=== PATIENT | male | born 1965 | race African-American/Black ===

== ENCOUNTER → 2020-08-08 | Outpatient (CLI) | payer OTHER, SELFPAY ==
--- NOTE | 2020-08-08 | IMM_PTH ---
PATIENT: NADER THAPA LOC: [facility] U#:[id number] AGE/SX: 54/M ROOM: RE08/08/[address]: Dr. Michael Dillard MD : 1965 BED: DIS: 08/08/2020 SPEC #: [id number] RECD: 01/31/21 12:38 STATUS: HIEN REQ #: [id number] JOCELYN: 08/08/20 00:[address]: Michael Dillard DEPT: IMMUNOHISTOCHEMISTRY RECD BY: Sadaf Patel Tissues: C - PROSTATE RIGHT Procedures: MSH2 (add) MLH-1 (add) MSH6 (add) Anti-PMS2 (add) P53 (add) KI-67 (initial) PHYSICIAN & INSTITUTION [place] [address] SPECIMEN INFORMATION: Tissue Source: C - Right prostate, base, core biopsy Clinical Info: R97.20 Specimen Number: [id number] CPT code: 11631, 36879 x5 METHODOLOGY: Deparaffinized sections of prefer/formalin-fixed tissue or PAP/DQ stained slides are incubated with monoclonal/polyclonal antibodies/oligonucleotide probes. Localization is made via biotin free immunoperoxidase method. Appropriate controls are performed and reacted as expected. Results on target cell population are indicated in the following table: RESULTS: ANTIBODY / CLONE RESULT Block C Ki-67 (30-9) positive, low P53 (DO-7) negative MLH-1 (M1) positive MSH2 (25D12) negative MSH6 (44) positive PMS2 (EEH7823) positive These tests were developed and their performance characteristics determined by [facility]. They may not have been cleared or approved by the U.S. Food and Drug Administration. The FDA has determined that such clearance or approval is not necessary. The above immunohistochemical/dualISH markers are ordered and reviewed by the Pathologist. INTERPRETATION: C. Right prostate, base, core biopsy: Adenocarcinoma. Result of Microsatellite Instability Study: Positive (loss of mismatch protein; microsatellite instability detected). Complete loss of MSH2. SJ:juan 02/02/2021
--- NOTE | 2020-08-08 | PROSBIL_PTH ---
PATIENT: NADER THAPA [facility][id number] AGE/SX: 54/M ROOM: RE08/08/[address]: Dr. Michael Dillard MD : 1965 BED: DIS: 08/08/2020 SPEC #: [id number] RECD: 08/08/20 16:55 STATUS: HIEN REChoco #: [id number] JOCELYN: 08/08/20 00:[address]: Michael Dillard DEPT: SURGICAL PATHOLOGY RECD BY: Edgar Isaac Tissues: A - PROSTATE RIGHT B - PROSTATE RIGHT C - PROSTATE RIGHT D - PROSTATE LEFT E - PROSTATE LEFT F - PROSTATE LEFT Procedures: PROSTATE BX HEADER OPERATION: Prostate biopsy PRE-OP DIAGNOSIS: R97.20 TISSUE SUBMITTED: A - Right apex, B - Right mid, C - Right base, D - Left apex, E - Left mid, F - Left base MICROSCOPIC DIAGNOSIS A. Right prostate, apex, core biopsy: Prostatic adenocarcinoma. [place]acey grade: 5+5=6 Number of cores involved: 2/2 Proportion of tissue involved: ~60% Perineural invasion: Not identified. Greatest tumor length: 0.4 cm Mild to moderate chronic inflammation. B. Right prostate, mid, core biopsy: Prostatic adenocarcinoma. Kacey grade: 5+4=9 Number of cores involved: 2/2 Proportion of tissue involved: ~70% Perineural invasion: Present. Greatest tumor length: 0.9 cm Mild to moderate chronic inflammation. C. Right prostate, base, core biopsy: Prostatic adenocarcinoma. Kacey grade: 5+4=9 Number of cores involved: 2/2 Proportion of tissue involved: ~90% Perineural invasion: Present. Greatest tumor length: 0.9 cm Mild to moderate chronic inflammation. See comment. D. Left prostate, apex, core biopsy: Prostatic adenocarcinoma. [place] grade: 5+4=9 Number of cores involved: 1/1 Proportion of tissue involved: ~10% Perineural invasion: Not identified. Greatest tumor length: 0.1 cm E. Left prostate, mid, core biopsy: Prostatic tissue, negative for malignancy. F. Left prostate, base, core biopsy: Prostatic adenocarcinoma. [place] grade: 5+3=8 Number of cores involved: 1/2 Proportion of tissue involved: ~40% Perineural invasion: Not identified. Greatest tumor length: 0.5 cm, discontinuous. Focal mild chronic inflammation. SJ:juan 08/10/2020 COMMENT C. The specimen got fragmented during processing and all tissue fragment shows the tumor. Case has been reviewed in consultation with Dr. Weathers who concurs with the above diagnosis. IDC:[email or web address] MICROSCOPIC DESCRIPTION Slides are reviewed. GROSS DESCRIPTION A - Received is one container designated prostate, right apex. The specimen consists of two elongated fragments of light james-white soft tissue measuring 0.5 and 1 cm in length and 0.1 cm in diameter. The specimen is totally submitted in one cassette. B - Received is one container designated prostate, right mid. The specimen consists of two elongated fragments of light james-white soft tissue each measuring 1 cm in length and 0.1 cm in diameter. The specimen is totally submitted in one cassette. C - Received is one container designated prostate, right base. The specimen consists of two elongated fragments of light james-white soft tissue each measuring 1.2 cm in length and 0.1 cm in diameter. The specimen is totally submitted in one cassette. D - Received is one container designated prostate, left apex. The specimen consists of one elongated fragment of light james-white soft tissue measuring 0.5 cm in length and 0.1 cm in diameter. The specimen is totally submitted in one cassette. E - Received is one container designated prostate, left mid. The specimen consists of two elongated fragments of light james-white soft tissue measuring 0.3 and 0.5 cm in length and 0.1 cm in diameter. The specimen is totally submitted in one cassette. F - Received is one container designated prostate, left base. The specimen consists of two elongated fragments of light james-white soft tissue measuring 0.5 and 1 cm in length and 0.1 cm in diameter. The specimen is totally submitted in one cassette. / SJ:rg 08/09/20 TC:0 CPT: 69553 x6
--- NOTE | 2020-08-08 | PROSBIL_PTH ---
PATIENT: NADER THAPA [facility][id number] AGE/SX: 54/M ROOM: RE08/08/[address]: Dr. Michael Dillard MD : 1965 BED: DIS: 08/08/2020 SPEC #: [id number] RECD: 08/08/20 16:55 STATUS: HIEN REChoco #: [id number] JOCELYN: 08/08/20 00:[address]: Michael Dillard DEPT: SURGICAL PATHOLOGY RECD BY: Edgar Isaac Tissues: A - PROSTATE RIGHT B - PROSTATE RIGHT C - PROSTATE RIGHT D - PROSTATE LEFT E - PROSTATE LEFT F - PROSTATE LEFT Procedures: PROSTATE BX HEADER OPERATION: Prostate biopsy PRE-OP DIAGNOSIS: R97.20 TISSUE SUBMITTED: A - Right apex, B - Right mid, C - Right base, D - Left apex, E - Left mid, F - Left base MICROSCOPIC DIAGNOSIS A. Right prostate, apex, core biopsy: Prostatic adenocarcinoma. Kacey grade: 5+5=10 Number of cores involved: 2/2 Proportion of tissue involved: ~60% Perineural invasion: Not identified. Greatest tumor length: 0.4 cm Mild to moderate chronic inflammation. B. Right prostate, mid, core biopsy: Prostatic adenocarcinoma. Kacey grade: 5+4=9 Number of cores involved: 2/2 Proportion of tissue involved: ~70% Perineural invasion: Present. Greatest tumor length: 0.9 cm Mild to moderate chronic inflammation. C. Right prostate, base, core biopsy: Prostatic adenocarcinoma. [place] grade: 5+4=9 Number of cores involved: 2/2 Proportion of tissue involved: ~90% Perineural invasion: Present. Greatest tumor length: 0.9 cm Mild to moderate chronic inflammation. See comment. D. Left prostate, apex, core biopsy: Prostatic adenocarcinoma. [place] grade: 5+4=9 Number of cores involved: 1/1 Proportion of tissue involved: ~10% Perineural invasion: Not identified. Greatest tumor length: 0.1 cm E. Left prostate, mid, core biopsy: Prostatic tissue, negative for malignancy. F. Left prostate, base, core biopsy: Prostatic adenocarcinoma. [place] grade: 5+3=8 Number of cores involved: 1/2 Proportion of tissue involved: ~40% Perineural invasion: Not identified. Greatest tumor length: 0.5 cm, discontinuous. Focal mild chronic inflammation. SJ:juan 08/10/2020 SJ:juan 08/30/2020 COMMENT C. The specimen got fragmented during processing and all tissue fragment shows the tumor. Case has been reviewed in consultation with Dr. Weathers who concurs with the above diagnosis. IDC:[email or web address] MICROSCOPIC DESCRIPTION Slides are reviewed. GROSS DESCRIPTION A - Received is one container designated prostate, right apex. The specimen consists of two elongated fragments of light james-white soft tissue measuring 0.5 and 1 cm in length and 0.1 cm in diameter. The specimen is totally submitted in one cassette. B - Received is one container designated prostate, right mid. The specimen consists of two elongated fragments of light james-white soft tissue each measuring 1 cm in length and 0.1 cm in diameter. The specimen is totally submitted in one cassette. C - Received is one container designated prostate, right base. The specimen consists of two elongated fragments of light james-white soft tissue each measuring 1.2 cm in length and 0.1 cm in diameter. The specimen is totally submitted in one cassette. D - Received is one container designated prostate, left apex. The specimen consists of one elongated fragment of light ajmes-white soft tissue measuring 0.5 cm in length and 0.1 cm in diameter. The specimen is totally submitted in one cassette. E - Received is one container designated prostate, left mid. The specimen consists of two elongated fragments of light james-white soft tissue measuring 0.3 and 0.5 cm in length and 0.1 cm in diameter. The specimen is totally submitted in one cassette. F - Received is one container designated prostate, left base. The specimen consists of two elongated fragments of light james-white soft tissue measuring 0.5 and 1 cm in length and 0.1 cm in diameter. The specimen is totally submitted in one cassette. / SJ:rg 08/09/20 TC:0 CPT: 73845 x6
== END | disposition home or self-care (01) ==
PROVIDERS: Referring Provider Urology; Visit Provider Urology
DX: R97.20 Elevated prostate specific antigen [PSA] (principal)
CPT/HCPCS: 88305; 88341; 88342; G0416

== ENCOUNTER → 2020-08-15 08:18 | Outpatient (CLI) | payer OTHER, SELFPAY ==
--- NOTE | 2020-08-15 08:23 | NM_ITS ---
CLINICAL: 54-year-old male with reported history of carcinoma of the prostate. WHOLE BODY 99m Tc MDP RADIONUCLIDE BONE SCINTIGRAPHY COMPARISON: None available FINDINGS: Following the intravenous administration of approximately 25.0 mCi of 99m Tc MDP, whole body bone images reveal: 1. Multifocal increased radiopharmaceutical concentration is defined in the axial skeletal structures, too many to individually articulate to include multiple thoracic and lumbar vertebra, the sacrum, right and left sacral ala, right posterior ilium, the right scapula, bilateral ribs, the distal sternum, left mid clavicle, left acetabulum, focally apparent in the midline frontal calvarium, left proximal humeral metaphysis, and distal right femoral diaphysis. 2. Facilitated tracer distribution is visualized in the patellofemoral compartments of both knees, the acromioclavicular and sternoclavicular compartments of both shoulders, the upper cervical spine posteriorly on the right, left ankle, bilateral wrists, knees bilaterally. 3. The remaining skeletal structures are scintigraphically unremarkable with normal-appearing renal images and urinary bladder activity identified. Enhanced tracer uptake is visualized in the bilateral maxilla and mandible most consistent with periodontal disease and/or periostitis. NM/Bone Scan Whole Body IMPRESSION: 1. The increase in tracer concentration identified in the appendicular and axial skeletal structures, midline frontal calvarium is commensurate with the presence of multifocal osseous metastatic disease. 2. Degenerative arthritis appears expressed in the bilateral knees, right and left shoulders, cervical spine, left ankle, wrists bilaterally, right and left knees. Electronically Signed: Orlando Flanagan DO at 22:40 EDT Tel , Service support ,
== END ==
PROVIDERS: PCP Nurse Practitioner Family; Referring Provider Urology; Visit Provider Urology
DX: C61 Malignant neoplasm of prostate (principal)
CPT/HCPCS: 78306; A9503

== ENCOUNTER → 2020-08-18 13:53 | Outpatient (CLI) | payer OTHER, SELFPAY ==
--- NOTE | 2020-08-18 13:55 | CT_ITS ---
STUDY: CT ABDOMEN AND PELVIS WITH CONTRAST REASON FOR EXAM: Male, 54 years old. MALIGNANT NEOPLASM OF PROSTATE RADIATION DOSAGE (If Supplied By Facility): CTDIvol = ( 12.59 ) mGy, DLP = ( 655.16 ) mGycm TECHNIQUE: Transaxial images were obtained from the dome of the diaphragm to the symphysis pubis without oral contrast. IV 100mL Isovue-370 was administered. Sagittal and coronal images were reconstructed. Individualized dose optimization techniques were used for this CT. COMPARISON: None. FINDINGS: The visualized lung bases are unremarkable. The visualized portions of the heart are within normal limits. Normal liver. The gallbladder is contracted. Normal spleen. Normal pancreas. Normal bilateral adrenal glands. Normal right kidney. Normal left kidney. Normal visualized stomach. Normal small intestine. Normal colon. There is non-visualization of the appendix. Normal abdominal aorta. Normal inferior vena cava. Normal retroperitoneum. Normal urinary bladder. Normal abdominal wall. Multiple sclerotic lesions within the lumbar spine sacrum and bony pelvis consistent with blastic metastases. CT/Abdomen/Pelvis WITH Contrast IMPRESSION: Blastic metastases but no metastatic lymphadenopathy. Electronically Signed: Orlando Brito MD at 13:29 EDT Tel , Service support ,
[2020-08-18 14:30] LABS: CREATININE FINGERSTICK 1.3 mg/dL (0.70-1.30); EGFR FINGERSTICK > 60.0000 mL/min (>60)
== END ==
PROVIDERS: PCP Nurse Practitioner Family; Referring Provider Urology; Visit Provider Urology
DX: C61 Malignant neoplasm of prostate (principal)
CPT/HCPCS: 74177; Q9967

== ENCOUNTER → 2020-09-08 17:41 | Outpatient (CLI) | payer OTHER, SELFPAY ==
[2020-09-06 10:05] VITALS: BMI 30.6
--- NOTE | 2020-09-08 17:55 | CT_ITS ---
STUDY: CT CHEST WITH CONTRAST REASON FOR EXAM: Male, 54 years old. Staging exam, known prostate cancer RADIATION DOSAGE (If Supplied By Facility): CTDIvol = ( 15.50 ) mGy, DLP = ( 465.08 ) mGycm TECHNIQUE: Transaxial imaging was performed following intravenous administration of IV 100mL Isovue-370. Multiplanar coronal and sagittal images were reformatted. Individualized dose optimization techniques were used for this CT. COMPARISON: None. FINDINGS: The lungs are normal. There is no demonstrated pleural abnormality. Normal heart and pericardium. There are scattered, subcentimeter in short axis dimension axillary, and mediastinal lymph nodes. Normal hilar regions. Normal enhanced pulmonary arteries. Normal aorta arch and descending thoracic aorta. Normal osseous structures. There is no demonstrated abnormality of the visualized upper abdomen. CT/Chest WITH Contrast IMPRESSION: No acute pulmonary process No suspicious noncalcified mass or nodule No pleural or pericardial effusions Electronically Signed: Nate Mayen MD at 8:28 EDT , Service support ,
== END ==
PROVIDERS: PCP Nurse Practitioner Family; Referring Provider Internal Medicine Hematology & Oncology; Visit Provider Internal Medicine Hematology & Oncology
DX: C61 Malignant neoplasm of prostate (principal); C79.51 Secondary malignant neoplasm of bone
CPT/HCPCS: 71260; Q9967

== ENCOUNTER 2020-09-09 10:10 | Day surgery (SDC) | payer OTHER, SELFPAY ==
[2020-08-31 09:15] VITALS: BMI 30.6
[2020-09-06 10:05] VITALS: BMI 30.6
[2020-09-09] VITALS (8 sets, daily range): BP systolic 122–130; BP diastolic 82–93; PULSE 64–72; RESP 16; TEMP 36.3–36.7; O2SAT 98–100; BMI 30.3
[2020-09-09] MEDS: Lactated Ringers 1,000 ML 100 ML IV (10:37)
--- NOTE | 2020-09-09 11:21 | HP.PCM_ITS ---
History and Physical Date of Admission: 09/09/20 Intake Vital Signs ? 09/06/2109:04 09/06/2109:05 Height 5 ft 10 in ? Weight: 213 lb ? BMI 30.5 30.6 BP 118/75 ? Blood Pressure Location Rt brachial ? Position Sitting ? Respiration 18 ? 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 Education Required: No Is patient in pain?: No Allergies No Known Allergies Allergy (Verified 09/06/20 10:04) Medications lisinopril 20 mg-hydrochlorothiazide 12.5 mg tablet 1 tab PO DAILY 08/24/20 [History Confirmed 09/06/20] bicalutamide 50 mg tablet 50 mg PO DAILY 08/30/20 [History Confirmed 09/06/20] cholecalciferol (vitamin D3) 50 mcg (2,000 unit) tablet 50 mcg PO DAILY 08/30/20 [History Confirmed 09/06/20] lidocaine-prilocaine 2.5 %-2.5 % topical cream 1 applic TOPICAL ONCE PRN 30 Days #30 g 08/31/20 [Rx Confirmed 09/06/20] ondansetron 8 mg disintegrating tablet 8 mg PO Q8H PRN #30 tab 08/31/20 [Rx Confirmed 09/06/20] prednisone 10 mg tablet 10 mg PO DAILY #30 tab 08/31/20 [Rx Confirmed 09/06/20] PFSH Medical History?(Updated 09/06/20 @ 10:[address] Teodoro Greenfield MD) Bone metastasis Elevated prostate specific antigen [PSA] Erectile dysfunction Essential (primary) hypertension Hypertension Male erectile dysfunction, unspecified Prostate cancer Social History? household members:? spouse housing:? house Smoking Status:? Never smoker Electronic Cigarette Use:? not used alcohol intake:? never substance use type:? does not use caffeine:? No HPI HPI HPI: NADER THAPA, is a 54 M who presents to the office today for port placement.? The patient has prostate cancer and requires chemotherapy. ROS General General: No weight change, appetite, fatigue, colon cancer, breast cancer or weakness HEENT HEENT: No difficulty swallowing, eye injury, eye surgery, swollen glands or hoarseness Endo Endocrine: No thyroid disease, diabetes mellitus, thyroid cancer, Hair loss, heat intolerance or cold intolerance Skin Skin: No rash or changing moles Breast Breast: No left breast lump, right breast lump, nipple discharge, breast pain, abnormal mammogram, abnormal US or breast enlargement Musc Musculoskeletal: Yes back problems; No arthritis, rheumatoid arthritis, gout or joint pain Cardio Cardiovascular: Yes high blood pressure; No murmur, pacemaker, heart disease, atrial fibrillation, heart attack, heart stent, palpitations, shortness of breat with exertion or chest pain Psych Psychiatric: No depression, anxiety or hearing voices Resp Respiratory: No shortness of breath, No sleep apnea, No cough, No COPD, No asthma, No emphysema and No wheezing Gastro Gastrointestinal: No abdominal pain, No nausea or vomiting, No diarrhea, No constipation, No blood in stool, No acid reflux, No hemorrhoids, No ulcers, No gallbladder problem and No black,tarry stools Ben Hematologic: No blood thinners, No blood disorders, No bleeding, No anemia and No blood clots Neuro Neurologic: No system reviewed and no additional complaints, except as documented, No as per HPI, No abnormal gait, No abnormal hearing, No abnormal movements, No abnormal speech, No behavioral changes, No burning sensations, No confusion, No convulsions, No disequilibrium, No dizziness, No localized weakness, No frequent falls, No headache(s), No lack of coordination, No loss of vision, No memory loss, No numbness, No other visual disturbances, No radicular pain, No restless legs, No sensory deficit, No syncope, No tingling, No tremor(s), No weakness and No other Exam Const General: cooperative Orientation: alert and oriented x3 [facility] Head: normal to inspection Neck Neck: normal visual inspection and full ROM Chest Chest palpation & inspection: normal inspection of the chest Resp Effort & Inspection: normal respiratory effort Auscultation: clear to auscultation bilaterally Cardio Rate: regular rate Rhythm: regular rhythm GI Inspection: non-distended Palpation: soft and nontender Skin General: no rashes or lesions noted Neuro General: patient alert and patient oriented x3 Extrem General: full ROM Psych Appearance: grossly normal Mental Status: mental status grossly normal Assessment and Plan Assessment and Plan (1) Prostate cancer: ?Status:?Acute (2) Bone metastasis: ?Status:?Acute (3) Encounter for insertion of venous access port: ?Status:?Acute ?Plan - Dr. Teodoro Greenfield MD: The patient has metastatic prostate cancer requires chemotherapy.? I discussed right chest port placement with the patient in detail.? I discussed the placement as well as the risks of placement including but not limited to bleeding, infection, pneumothorax, DVT or line infection.? The patient understands all of this and he would like to proceed with right chest port placement.? The patient is due to start treatments on Saturday so I will schedule him for this Saturday for port placement.? The patient received a second Covid vaccine on August 22 so he should not need preoperative Covid testing. Teodoro Greenfield MD Pager: [facility] [address] [place] [address], [address] [place] [address] Office: I have re-examined the patient. There are no clinical changes since date of exam.
[2020-09-09] MEDS: Cefazolin 2 GM in 0.9% Normal Saline 100 ML IV (11:45)
[2020-09-09] MEDS: Bupivacaine Mpf 0.5% 30 ML VIAL (11:52)
--- NOTE | 2020-09-09 12:35 | RAD_ITS ---
STUDY: X-RAY CHEST REASON FOR EXAM: Male, 54 years old. Port placement TECHNIQUE: Single AP portable view of the chest. COMPARISON: None. FINDINGS: A right subclavian port has been placed, tip is in the distal SVC, no pneumothorax or mediastinal shift. The lungs are clear and expanded. There is no demonstrated pleural abnormality. Normal size heart. Normal mediastinum and shine. Normal visualized pulmonary arteries. Normal visualized aortic arch and descending thoracic aorta. Normal visualized thoracic spine. Normal visualized ribs, clavicles, and shoulders. There is no demonstrated abnormality of the visualized soft tissue structures of the upper abdomen. RAD/Chest 1 View (Portable) IMPRESSION: No acute pulmonary process Right subclavian port tip in the distal SVC. No complications Electronically Signed: Nate Mayen MD at 12:59 EDT , Service support ,
--- NOTE | 2020-09-09 12:38 | PCM.OPRPT ---
Problems Associated Problem List Diagnoses (1) Encounter for insertion of venous access port: (2) Prostate cancer: Report of Operation Date of Procedure: 09/09/20 Pre-Operative Diagnosis: Prostate cancer need for vascular access for chemotherapy Post-Operative Diagnosis: Same Surgery/Procedure Performed:: Ultrasound and fluoroscopy guided right chest port placement utilizing right IJ Description of Procedure: After obtaining informed consent patient was brought back to the operating room MAC anesthesia was induced and the right chest and neck were prepped in normal sterile fashion. Ultrasound was used to evaluate both IJs and the right IJ was selected. Next, using a needle, the right IJ was accessed and a guidewire was passed on into the superior vena cava under fluoroscopy guidance. A small incision was made over the puncture site and the dilator introducer was placed over the guidewire. Next this was capped and the pocket was made for the port. 1% lidocaine with epinephrine was injected in the proposed port site. An incision was made with scalpel. Electrocautery was used to make a pocket under the skin and subcutaneous tissue. Hemostasis was obtained. Next, the catheter was tunneled up to the neck incision site and placed through the introducer. The peel-away introducer was removed and the position of the catheter was confirmed on fluoroscopy. Next, the catheter was trimmed and attached to the port with the locking device. Interrupted 2-0 Vicryl sutures were used to anchor the port to the chest wall and then the port was placed inside the pocket. The pocket was then flushed with saline and the port irrigated with saline. There was good blood return and the port flushed easily. The skin was closed with subcutaneous interrupted 3-0 Vicryl sutures. A single 3-0 Vicryl sutures placed under the skin at the neck incision site. The port was then accessed with the included needle and flushed with saline and then injected with heparinized saline. The port was left accessed. Steri-Strips were placed as well as op sites. Patient tolerated procedure well, was taken to PACU in stable condition. Chest x-ray will be obtained. Grafts/Implants Used: 8 [place] [employer] Admit VTE Documentation VTE Mechan Device Prophylaxis: SCD's
--- NOTE | 2020-09-09 12:42 | EX.PCM.DISCH ---
Discharge Instructions Procedure Port-A-Cath Diet Discharge Diet: Light diet - advance as tolerated (Pain medication may cause nausea. You should typically eat light foods as you take your pain medication.) Activity Discharge Activity: Return to Normal Activity and May Shower (with your bandage in place in 1-2 days after surgery. DO NOT SHOWER WHEN YOUR PORT IS ACCESSED.) Dressing / Incision Call your doctor if your incision/area has: Continuous Slow Oozing, Sudden Increased Bleeding, Increased Pain/ Swelling, Increased Redness, Foul Smelling Discharge and Swelling at the incision site Call your doctor if you observe: Fever of 101 or Higher Remove Dressing in: 3 days (Leave dressing in place until after treatment saturday) Follow Up Care Please Follow Up With: Teodoro Greenfield MD When: Follow up as needed. [phone] Test Results: Test results from this visit will be discussed in further detail at your follow-up appointment, if applicable. Discharge Plan Admission Attending Provider: Teodoro Greenfield Primary Care Provider: Darya Dunn NP Discharge Orders/Prescriptions Prescriptions: No Action cholecalciferol (vitamin D3) 50 mcg (2,000 unit) tablet 50 mcg PO DAILY RF: 0 bicalutamide 50 mg tablet 50 mg PO DAILY RF: 0 lisinopril-hydrochlorothiazide 20-12.5 mg tablet 1 tab PO DAILY RF: 0 ondansetron 8 mg tablet,disintegrating 8 mg PO Q8H PRN (Reason: nausea and vomiting) Qty: 30 RF: 2 lidocaine-prilocaine 2.5-2.5 % cream 1 applic topical ONCE PRN (Reason: port access) 30 Days Qty: 30 RF: 2 prednisone 10 mg tablet 10 mg PO DAILY Qty: 30 RF: 4 Referrals / Follow Up: Darya Dunn NP, MAILROOM COORDINATOR-C [Primary Care Provider] - Disposition Disposition (needs filled in before D/C Order can be placed): Home, self care
== END 2020-09-09 13:14 | disposition home or self-care (01) ==
LOC: SDC 10:11 → AC 10:12
PROVIDERS: PCP Nurse Practitioner Family; Referring Provider Surgery; Visit Provider Surgery
PROC: (CPT 36561; principal; 2020-09-09 11:20)
DX: Z45.2 Encounter for adjustment and management of vascular access device (principal); C61 Malignant neoplasm of prostate; C79.51 Secondary malignant neoplasm of bone; I10 Essential (primary) hypertension; N52.9 Male erectile dysfunction, unspecified; R97.20 Elevated prostate specific antigen [PSA]; Z79.52 Long term (current) use of systemic steroids; Z79.899 Other long term (current) drug therapy
CPT/HCPCS: 36561; 71045; 77001; J7120; C1788

== ENCOUNTER → 2021-01-16 07:57 | Outpatient (CLI) | payer OTHER, SELFPAY ==
--- NOTE | 2021-01-16 08:01 | NM_ITS ---
CLINICAL: Male, 55 years old. RESPONSE TO TREATMENT -- BONE METS WHOLE BODY NUCLEAR BONE SCAN TECHNIQUE: Following the IV administration of 24.7 mCi of Tc MDP, whole body bone imaging was performed with a gamma camera following a three hour delay. COMPARISON STUDIES : NM - 08/15/2020 CR - Not available for review at this time. CT - Not available for review at this time. MR - Not available for review at this time. US - Not available for review at this time. FINDINGS: Multifocal areas of increased FDG activity involving bilateral ribs, cervical spine, thoracic and lumbar spine, sacrum/pelvis, right scapula, proximal left humerus, sternum, right femoral diaphysis redemonstrated although some areas demonstrate lesser amount of intensity (ribs, sternum, left acetabulum). The left mid clavicle lesion evident on the prior study is not clearly identified on the current exam. Distribution is otherwise similar. Multifocal degenerative activity involving the shoulders, wrists, knees and feet/ankles. NM/Bone Scan Whole Body IMPRESSION: 1. Since 08/15/2020, mild favorable change/response. Multifocal osseous metastasis with slightly intensive several lesions. Left clavicle lesion seen on the prior study is no longer identified. No new lesions. Electronically Signed: Harvey Chamberlain MD ([place]) at 12:19 EDT , Service support ,
[2021-01-16] MEDS: 0.9% Saline Lock 10 ML Syringe IV (08:15)
== END ==
PROVIDERS: PCP Nurse Practitioner Family; Referring Provider Internal Medicine Hematology & Oncology; Visit Provider Internal Medicine Hematology & Oncology
DX: C61 Malignant neoplasm of prostate (principal); C79.51 Secondary malignant neoplasm of bone
CPT/HCPCS: 78306; A9503; A4216

== ENCOUNTER → 2021-09-05 | Outpatient (CLI) | payer OTHER, SELFPAY ==
--- NOTE | 2021-09-05 07:23 | NM_ITS ---
CLINICAL: Male, 55 years old. F/U PROSTATE CANCER ON RX -- Pain in LEFT INDEX FINGER AFTER INJURY 5 WEEKS AGO WHOLE BODY NUCLEAR BONE SCAN TECHNIQUE: Following the IV administration of 26 mCi of Tc MDP, whole body bone imaging was performed with a gamma camera following a three hour delay. COMPARISON STUDIES : NM - 01/16/2021 CR - Not available for review at this time. CT - Not available for review at this time. MR - Not available for review at this time. US - Not available for review at this time. FINDINGS: There is no change in the areas of increased uptake involving the ribs, cervical spine, thoracic spine, lumbar spine, sacrum, proximal left humerus and distal shaft of the right femur worrisome for metastatic disease. There is no change in the focal areas of increased uptake in the knee joints consistent with arthrosis. Normal concentration from skull by both kidneys with normal excretion into the bladder. NM/Bone Scan Whole Body IMPRESSION: No change in metastatic disease. Electronically Signed: Orlando Brito MD at 13:19 EDT ,
[2021-09-05] MEDS: 0.9% Saline Lock 10 ML Syringe IV (07:49)
== END | disposition home or self-care (01) ==
PROVIDERS: PCP Nurse Practitioner Family; Referring Provider Internal Medicine Hematology & Oncology; Visit Provider Internal Medicine Hematology & Oncology
DX: C61 Malignant neoplasm of prostate (principal); M79.645 Pain in left finger(s)
CPT/HCPCS: 78306; A9503

== ENCOUNTER 2022-01-01 14:16 | Emergency (ER) | payer OTHER, SELFPAY ==
[2022-01-01 14:16] VITALS: BP 122/78; PULSE 93; RESP 15; TEMP 36.3; O2SAT 98; BMI 32.5
--- NOTE | 2022-01-01 14:44 | EX.ED.DYSGE1 ---
HPI History of Present Illness Chief Complaint: Hyperglycemia Informant: patient and spouse/S.O. Narrative Narrative: Sent in from oncology office for hyperglycemia with blood work today. 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 Reports blood work in the office today glucose in the 700 range. He had paperwork last month was in the 200 range. He is reporting polyuria and polydipsia for the past month. Denies fevers cough chest or abdominal pain. No history of diabetes. No family history of diabetes. He does see his PCP yearly with blood work is never told of any diabetic issues. He denies any nausea or vomiting. Denies any dyspnea. Prior similar symptoms: No PFSH PFS Medical History Acid reflux Anemia Back pain Bone metastasis Cancer Elevated prostate specific antigen [PSA] Erectile dysfunction Essential (primary) hypertension Hypertension Male erectile dysfunction, unspecified On prednisone therapy Prostate cancer Stomatitis Wears dentures Wears glasses Home Medications lisinopril 20 mg-hydrochlorothiazide 12.5 mg tablet 1 tab PO DAILY 08/24/20 [History Last Taken Unknown] cholecalciferol (vitamin D3) 50 mcg (2,000 unit) tablet 50 mcg PO DAILY 08/30/20 [History Last Taken Unknown] lidocaine-prilocaine 2.5 %-2.5 % topical cream 1 applic topical ONCE PRN port access 30 days #30 grams 08/31/20 [Rx Last Taken Unknown] ondansetron 8 mg disintegrating tablet 8 mg PO Q8H PRN nausea and vomiting #30 tabs 08/31/20 [Rx Last Taken Unknown] prednisone 10 mg tablet 10 mg PO DAILY #30 tabs 02/03/21 [Rx Last Taken Unknown] ferrous sulfate 325 mg (65 mg iron) tablet 325 mg PO DAILY 06/26/21 [History Last Taken Unknown] multivitamin 1 tab PO DAILY 06/26/21 [History Last Taken Unknown] omeprazole 20 mg capsule,delayed release 20 mg PO DAILY #30 caps 08/17/21 [Rx Last Taken Unknown] prednisone 10 mg tablet 10 mg PO DAILY 90 days #100 tabs 10/30/21 [Rx Last Taken Unknown] abiraterone 500 mg tablet (Zytiga) 1,000 mg PO DAILY 12/04/21 [History Last Taken Unknown] fish oil 400 mg-flaxseed 400 mg-prim,blk service center representative,borag oils 200 mg capsule (Fish, Flax and Borage Oil ([employer])) 2 cap PO DAILY 12/04/21 [History Last Taken Unknown] lisinopril 20 mg tablet 20 mg PO DAILY 12/04/21 [History Last Taken Unknown] calcium carbonate 500 mg calcium (1,250 mg) tablet (Oyster Shell Calcium 500) See Rx Instructions .Route .COMPLEX #60 tabs 01/01/22 [Rx Last Taken Unknown] Allergy/AdvReac Type Severity Reaction Status Date / Time No Known Allergies Allergy Verified 01/01/22 10:45 Social History household members: spouse housing: house Smoking Status: Never smoker Electronic Cigarette Use: not used second hand exposure: No alcohol intake: never substance use type: does not use caffeine: No seatbelt use: always do you feel safe at home: Yes ROS ROS ED Constitutional Constitutional ED: Denies chills, fever(s) or sweats Eyes Eyes: Denies change in vision ENT ENT ED: Denies dysphagia or sore throat Cardiovascular Cardiovascular: Denies chest pain, leg edema, palpitations or racing heartbeat Respiratory/Chest Respiratory/Chest: Denies cough, dyspnea or dyspnea on exertion Gastrointestinal Gastrointestinal: Denies abdominal pain, diarrhea, nausea or vomiting Genitourinary Genitourinary ED: Denies dysuria, hematuria or urinary frequency Musculoskeletal Musculoskeletal: Denies back pain, extremity pain or neck pain Integumentary Denies rash or wounds Neurologic Neurologic: Denies headache(s), paresthesias or weakness Endocrine Endocrinology: Reports polydipsia and polyuria EXAM Physical Exam Const Vital Signs: 01/01/22 14:16 01/01/22 16:16 01/01/22 18:01 Temperature 97.4 F L Temperature Source Temporal Pulse Rate 93 77 78 Respiratory Rate 15 17 18 Blood Pressure 122/78 H 112/68 Blood Pressure Mean 92 Pulse Ox 98 99 100 Oxygen Delivery Method Room Air Room Air Positive well nourished and well developed General Appearance ED: well developed and NAD HEENT HEENT Narrative: Mild dry mucosal membranes. normocephalic and atraumatic Eyes PERRL, EOMs intact bilaterally and conjunctivae normal General Eye ED: Yes normal appearance of both eyes Neck no lymphadenopathy and supple General: Negative for tenderness Chest Wall Chest: Negative for tenderness Resp normal respiratory effort and normal air movement Effort and Inspection: symmetric chest movement; Negative for respiratory distress Cardio regular rate, regular rhythm and no murmurs Peripheral Pulses: pulses 2+ throughout GI normal to inspection, nondistended, normoactive bowel sounds and non-tender Palpation: Negative for guarding or rebound tenderness present Back/Spine no CVA tenderness and no thoracic nor lumbar tenderness Extremity normal to inspection General Extremety ED: Negative for edema or tenderness General Extremity: Negative for edema Neuro oriented x3 and no sensory deficits noted Sensorium / Orientation: awake and alert Skin no rashes or lesions noted and no wounds MDM MDM MDM Narrative Medical decision making narrative: Patient polyuria polydipsia fingerstick glucose 496. Order for 2 L of fluid glucose in the lab is 560 Is normal acetone negative. Give additional 10 units of subcu insulin. Urine negative for infection. Sodium 130 likely from glucose. Creatinine 1.5. He status post fluids. Reevaluation patient states he spoke with his primary caregiver Darya Dunn he has appoint a 50 in the morning. In addition, I spoke with on-call physician Dr. Moctezuma he will be fasting tonight for blood work tomorrow they will start medication for him when his get things tomorrow. In addition to diabetic education. All questions were answered. Lab Data Attestation: I reviewed the patient's lab results. Labs: Laboratory Results - last 24 hr 01/01/22 01/01/22 01/01/22 14:39 14:49 14:49 WBC 5.6 RBC 4.98 Hgb 12.0 L Hct 37.3 L MCV 74.9 L MCH 24.1 L MCHC 32.2 RDW Std Deviation 35.8 RDW Coeff of Julito 13.4 Plt Count 267 MPV 10.4 Immature Gran % (Auto) 0.500 Neut % (Auto) 72.6 H Lymph % (Auto) 20.4 [place] % (Auto) 5.7 Eos % (Auto) 0.4 Baso % (Auto) 0.4 Absolute Neuts (auto) 4.1 Absolute Lymphs (auto) 1.14 Nucleated RBC % 0 Sodium 130 L Potassium 4.6 Chloride 95 L Carbon Dioxide 25.0 Anion Gap 10 BUN 21 H Creatinine 1.52 H Estim Creat Clear Calc 55.36 Est GFR (MDRD) Af Amer 61 Est GFR (MDRD) Non-Af 51 L BUN/Creatinine Ratio 13.8 Glucose 560 H* Calcium 10.3 H Urine Color Urine Clarity Urine pH Ur Specific [place] Urine Protein Urine Glucose (UA) Urine Ketones Urine Occult Blood Urine Nitrite Urine Bilirubin Urine Urobilinogen Ur Leukocyte Esterase Urine RBC Urine WBC Ur Squamous Epith Cells Urine Bacteria Urine Mucus Acetone Level POC Glucose 496 H* 01/01/22 01/01/22 14:49 15:20 WBC RBC Hgb Hct MCV MCH MCHC RDW Std Deviation RDW Coeff of Julito Plt Count MPV Immature Gran % (Auto) Neut % (Auto) Lymph % (Auto) [place] % (Auto) Eos % (Auto) Baso % (Auto) Absolute Neuts (auto) Absolute Lymphs (auto) Nucleated RBC % Sodium Potassium Chloride Carbon Dioxide Anion Gap BUN Creatinine Estim Creat Clear Calc Est GFR (MDRD) Af Amer Est GFR (MDRD) Non-Af BUN/Creatinine Ratio Glucose Calcium Urine Color Yellow Urine Clarity Clear Urine pH 6.0 Ur Specific [place] 1.010 Urine Protein Negative Urine Glucose (UA) 1000 H Urine Ketones Negative Urine Occult Blood 10 H Urine Nitrite Negative Urine Bilirubin Negative Urine Urobilinogen Normal Ur Leukocyte Esterase Negative Urine RBC 0 SEEN Urine WBC 0 SEEN Ur Squamous Epith Cells 0 SEEN Urine Bacteria 0 SEEN Urine Mucus 0 SEEN Acetone Level NEGATIVE POC Glucose Discharge Plan Triage Chief Complaint: Hyperglycemia ED Provider: Preet Hemphill Dx/Rx/DC Orders Clinical Impression: Diabetes mellitus, new onset, Prostate cancer, Bone metastasis, Polyuria, Polydipsia Instructions: ED Diabetes- Overview Prescriptions: No Action cholecalciferol (vitamin D3) 50 mcg (2,000 unit) tablet 50 mcg PO DAILY lisinopril-hydrochlorothiazide 20-12.5 mg tablet 1 tab PO DAILY ondansetron 8 mg tablet,disintegrating 8 mg PO Q8H PRN (Reason: nausea and vomiting) Qty: 30 2RF lidocaine-prilocaine 2.5-2.5 % cream 1 applic topical ONCE PRN (Reason: port access) 30 Days Qty: 30 2RF ferrous sulfate 325 mg (65 mg iron) tablet 325 mg PO DAILY multivitamin Tablet 1 tab PO DAILY lisinopril 20 mg tablet 20 mg PO DAILY Fish, Flax andBorage Oil(Prim) 400-400-200 mg capsule 2 cap PO DAILY Rx Instructions: 800mg/800mg abiraterone [Zytiga] 500 mg tablet 1,000 mg PO DAILY Rx Instructions: must be taken on empty stomach, at least 1 hr before or 2 hrs after a meal/food prednisone 10 mg Tablet 10 mg PO DAILY 90 Days Qty: 100 4RF Rx Instructions: Take in the morning starting same day Starting Zytiga prednisone 10 mg tablet 10 mg PO DAILY Qty: 30 4RF omeprazole 20 mg capsule,delayed release(DR/EC) 20 mg PO DAILY Qty: 30 2RF calcium carbonate [Oyster Shell Calcium 500] 500 mg calcium (1,250 mg) tablet See Rx Instructions .ROUTE .COMPLEX Qty: 60 0RF Dose Instruction: Take 1 tablet by mouth twice daily Rx Instructions: Take 1 tablet by mouth twice daily Primary Care Provider: Darya Dunn NP Referrals: Darya Dunn NP, AUTO BODY TECHNICIAN-C [Primary Care Provider] - Keep [place] appointment Activity Restrictions/Additional Instructions: Work-up hyperglycemia new onset diabetes no DKA. Keep your scheduled appointment at 850 tomorrow a.m. to discuss medications and education. Your status post 10 units insulin in the ED with glucose of 560 status post 2 L of IV fluids. Fast at least 8 hours before your appointment for planned blood work. Discussed with Dr. Moctezuma. Disposition Disposition: Home, Self Care Discharge Date/Time: 01/01/22 18:10
[2022-01-01 14:56] LABS: Absolute Lymphocyte Count 1.14 X10^3/uL (0.83-4.51); Absolute Neutrophil Count 4.1 X10^3/uL (2.0-7.7); Basophil# 0.02 X10^3/uL; Basophil% 0.4 % (0-1); Eosinophil# 0.02 X10^3/uL; Eosinophils% 0.4 % (0-5); Hematocrit 37.3 % (40-54); Lymphocyte # 1.14 X10^3/ul (0.83-4.51); Lymphocyte % 20.4 % (19-41); Mean Corp Hgb Conc 32.2 g/dL (32-36); Mean Corpuscular Hgb 24.1 pg (27.0-32.0); Mean Corpuscular Volume 74.9 fL (80-94); Mean Platelet Vol. 10.4 fl (6.2-12.0); Monocyte# 0.32 X10^3/uL; Monocyte% 5.7 % (0-10); NRBC Flagged by Analyzer 0 % (0-5); Neutrophil # 4.05 X10^3/uL (2.7-7.7); Neutrophil % 72.6 % (47-70); Platelet Count 267 K/mm3 (150-450); RBC Distribution Width CV 13.4 % (11.6-14.6); RBC Distribution Width SD 35.8 fl (35.1-43.9); Red Blood Count 4.98 M/mm3 (4.6-6.2); White Blood Count 5.6 K/mm3 (4.4-11.0)
[2022-01-01 15:01] LABS: Bedside Glucose 496 mg/dL (74-106)
[2022-01-01] MEDS: 0.9% Normal Saline 1,000 ML 1000 ML IV ×2 (15:16→16:16)
[2022-01-01 15:30] LABS: Bacteria 0 SEEN /hpf (None Seen); Mucous, Urine 0 SEEN /hpf (<or=2+); Red Blood Cells-Urine 0 SEEN /hpf (0-5); Squamous Epithelial Cells - UA 0 SEEN /hpf (0-5); White Blood Cells 0 SEEN /hpf (0-5)
[2022-01-01 15:53] LABS: Anion Gap 10 (5-15); BUN 21 mg/dL (7-18); BUN/Creat Ratio 13.8 RATIO (10-20); Calcium,Total 10.3 mg/dL (8.5-10.1); Chloride 95 mmol/L (98-107); Creatinine, Serum 1.52 mg/dL (0.70-1.30); EST Glomerular Filtration Rate 51 mL/min (>60); Est Glom Filt Rate - Afr Amer 61 mL/min (>60); Estimated Creatinine Clearance 55.36 ml/min; Glucose 560 mg/dL (74-106); Potassium 4.6 mmol/L (3.5-5.1); Sodium Level 130 mmol/L (136-145)
[2022-01-01 16:16] VITALS: PULSE 77; RESP 17; O2SAT 99
[2022-01-01 16:27] LABS: Color, Urine Yellow (Yellow); Glucose, Dipstick 1000 mg/dl (Normal); Ketone-Dipstick Negative (Negative); Leukocyte Esterase-Dipstick Negative /ul (Negative); Nitrite-Dipstick Negative (Negative); Occult Blood-Urine 10 /ul (Negative); Protein-Dipstick Negative (Negative); Urine Bilirubin Dipstick Negative (Negative); Urine Clarity Clear (Clear); Urine Urobilinogen Normal (Normal)
[2022-01-01] MEDS: Insulin Lispro 100 UNIT/ML INSULN.PEN 10 UNIT SC (17:24)
[2022-01-01 18:01] VITALS: BP 112/68; PULSE 78; RESP 18; O2SAT 100
== END 2022-01-01 18:10 | disposition home or self-care (01) ==
PROVIDERS: Emergency Provider Emergency Medicine; PCP Nurse Practitioner Family; Visit Provider Emergency Medicine
DX: E11.65 Type 2 diabetes mellitus with hyperglycemia (principal); C79.51 Secondary malignant neoplasm of bone; C61 Malignant neoplasm of prostate; I10 Essential (primary) hypertension; R35.89 Other polyuria; R63.1 Polydipsia; Z79.899 Other long term (current) drug therapy; Z79.52 Long term (current) use of systemic steroids
CPT/HCPCS: 80048; 81001; 82009; 82962; 85025; 96360; 96361; 99283; J7030; A4216

== ENCOUNTER → 2022-02-26 | Outpatient (CLI) | payer OTHER, SELFPAY ==
--- NOTE | 2022-02-26 09:03 | NM_ITS ---
CLINICAL: 55-year-old male with history of primary prostate carcinoma. WHOLE BODY 99m Tc MDP RADIONUCLIDE BONE SCINTIGRAPHY COMPARISON: Prior whole body bone scan dated 09/05/2021 FINDINGS: Following the intravenous administration of 19.0 mCi of 99m Tc MDP, whole body bone images reveal: 1. Enhanced tracer uptake remains apparent in the ninth rib posteriorly on the right, the 11th and lesser extent 12th thoracic vertebra, the fourth and fifth lumbar vertebra, the right sacroiliac joint-posterior ilium. The intensity of uptake appears improved compared to the examination dated 09-05-2021. 2. Facilitated radiopharmaceutical concentration is redefined in the left wrist, both knee articulations, the posterior compartment of the right ankle, the mid cervical spine posteriorly on the right, the acromioclavicular compartments of both shoulders. 3. The remaining skeletal structures are scintigraphically unremarkable with normal-appearing renal images and urinary bladder activity identified. Increased tracer is redefined in the third rib anteriorly on the left at the costochondral junction most consistent with trauma-fracture. NM/Bone Scan Whole Body IMPRESSION: 1. The increase in radiopharmaceutical concentration redefined in the right posterior ninth rib, the lower thoracic and lumbar spine, the right sacroiliac joint remains consistent with osteoblastic turnover attributed to skeletal metastatic disease improved on the current examination secondary to the decreased intensity of uptake as described above. 2. Degenerative arthritis is redemonstrated in the left wrist, the right left knees, the right ankle, the mid cervical spine and acromioclavicular compartments of both shoulders. 3. Overall compared to the previous whole body bone scintigraphy study dated 09/05/2021, there is continued demonstration osteoblastic skeletal metastasis with interval improvement as described above. Electronically Signed: Orlando Flanagan, at 18:56 EST ,
== END | disposition home or self-care (01) ==
PROVIDERS: PCP Nurse Practitioner Family; Visit Provider Internal Medicine Hematology & Oncology
DX: C61 Malignant neoplasm of prostate (principal); C79.51 Secondary malignant neoplasm of bone
CPT/HCPCS: 78306; A9503

== ENCOUNTER → 2022-03-12 | Outpatient (CLI) | payer OTHER, SELFPAY ==
--- NOTE | 2022-03-12 07:09 | MRI_ITS ---
EXAM: MR HEAD WITHOUT AND WITH INTRAVENOUS CONTRAST CLINICAL INDICATION: HEADACHES/HX OF PROSTATE CA TECHNIQUE: Multiplanar and multisequence MR images of the brain were obtained without and with intravenous contrast. This report was created using [employer] report [employer] technology. CONTRAST: IV 20 cc clariscan COMPARISON: None. FINDINGS: BRAIN AND EXTRA-AXIAL SPACES: Unremarkable. No intra- or extra-axial hemorrhage. No evidence of acute infarct. No intracranial mass or mass effect. There is preservation of the nye/white matter interface. Posterior fossa structures are unremarkable. Ventricles are appropriate for age. No hydrocephalus. Basal cisterns are patent. SELLA: Unremarkable. Normal sella turcica, pituitary gland, infundibular stalk, optic chiasm and hypothalamus. AUDITORY SYSTEM: Unremarkable. The internal auditory canals are patent. BONES/JOINTS: Unremarkable. No discrete lytic or blastic abnormalities. SINUSES: Unremarkable as visualized. Clear. MASTOID AIR CELLS: Unremarkable as visualized. Clear. ORBITS: Unremarkable as visualized. Both globes, extraocular muscles, optic nerves and retrobulbar fat appear unremarkable. VASCULATURE: Unremarkable as visualized. Normal flow voids in the major intracranial circulation. MRI/Brain W/WO Contrast IMPRESSION: Negative MRI brain without and with intravenous contrast. Electronically Signed: Iain Stover MD at 16:20 EST ,
[2022-03-12] MEDS: 0.9% Saline Lock 10 ML Syringe IV (08:15)
== END | disposition home or self-care (01) ==
LOC: MRI 07:09
PROVIDERS: PCP Nurse Practitioner Family; Referring Provider Internal Medicine Medical Oncology; Visit Provider Internal Medicine Medical Oncology
DX: R51.9 Headache, unspecified (principal); C79.51 Secondary malignant neoplasm of bone; C61 Malignant neoplasm of prostate
CPT/HCPCS: 70553; A9575; A4216

== ENCOUNTER → 2022-03-26 | Outpatient (CLI) | payer OTHER, SELFPAY ==
--- NOTE | 2022-03-26 14:57 | CT_ITS ---
STUDY: CT ABDOMEN AND PELVIS WITH CONTRAST REASON FOR EXAM: Male, 56 years old. Known prostate cancer RADIATION DOSAGE (If Supplied By Facility): CTDIvol = ( 16.10 ) mGy, DLP = ( 1095.30 ) mGycm TECHNIQUE: Transaxial images were obtained from the dome of the diaphragm to the symphysis pubis with oral contrast. IV 100mL Isovue-300 was administered. Sagittal and coronal images were reconstructed. Individualized dose optimization techniques were used for this CT. COMPARISON: 08/18/2020 FINDINGS: The visualized lung bases are unremarkable. The visualized portions of the heart are within normal limits. Normal liver. Normal gallbladder and extrahepatic biliary system. Normal spleen. Normal pancreas. Normal bilateral adrenal glands. Normal right kidney. Normal left kidney. The stomach is distended with oral contrast and food Normal small intestine. Normal colon. The appendix is visualized and appears normal. Appendix seen and coronal recon images 38 through 46 Normal abdominal aorta. Normal inferior vena cava. Normal retroperitoneum. Normal urinary bladder. Normal abdominal wall. Persistent diffuse sclerotic changes in at least one thoracic vertebral body, throughout the lumbar body sacrum and pelvis. CT/Abdomen/Pelvis WITH Contrast IMPRESSION: Persistent diffuse osseous metastasis. No suspicious solid organ abnormality No free intraperitoneal fluid, air, or suspicious adenopathy, normal appendix visualized Electronically Signed: Nate Mayen MD at 19:20 EST ,
[2022-03-26] MEDS: 0.9 % NaCl (Sterile) Posiflush 10 mL IV (15:15)
== END | disposition home or self-care (01) ==
LOC: CT 14:56
PROVIDERS: PCP Nurse Practitioner Family; Referring Provider Internal Medicine Medical Oncology; Visit Provider Internal Medicine Medical Oncology
DX: R10.9 Unspecified abdominal pain (principal); C79.51 Secondary malignant neoplasm of bone; C61 Malignant neoplasm of prostate
CPT/HCPCS: 74177; Q9967; A4216

== ENCOUNTER → 2022-04-10 | Outpatient (CLI) | payer OTHER, SELFPAY ==
--- NOTE | 2022-04-10 08:26 | BD_ITS ---
STUDY: DUAL ENERGY X-RAY ABSORPTIOMETRY / DXA REASON FOR EXAM: Male, 56 years old. PROSTATE CANCER/ABD PAIN TECHNIQUE: Bone Mineral Density (BMD) measurements of lumbar spine and left hip were obtained. COMPARISON: None. FINDINGS: Lumbar Spine (L1-L4): g/cm2 (1.468) / T-score (3.8) / Z-score (4.3) Findings are suggestive of normal bone density with a low fracture risk. Left Femur Total: g/cm2 (1.173) / T-score (0.9) / Z-score (1.3) Left Femoral Neck: g/cm2 (1.032) / T-score (0.7) / Z-score (1.6) BD/Dexa Bone Density Study IMPRESSION: The patient is considered normal as outlined below according to World Chaitanya Organization (WHO) criteria with a low fracture risk. Reference Information: The T-score is the number of standard deviations above or below the standard which is normal for young adults at their peak bone mineral density. The World Health Organization (WHO) interprets the T-scores as follows: Above -1 Normal bone density Between -1 and -2.5 Osteopenia Equal to / or below -2.5 Osteoporosis As a practical clinical guideline, osteopenia may be graded as follows: Mild -1 through -1.5 Moderate -1.6 through -2.0 Severe -2.1 through -2.4 The Z-score is the number of standard deviations above or below age-matched controls. A Z-score of less than -1.5 would be considered abnormal. References: 1. NIH Osteoporosis and Related Bone Diseases www osteo.org 2. International Society for Clinical Densitometry www iscd.org 3. National Osteoporosis Foundation www nof.org Electronically Signed: Dariusz Stafford MD at 8:52 EST ,
== END | disposition home or self-care (01) ==
LOC: OPBD 08:19
PROVIDERS: PCP Nurse Practitioner Family; Visit Provider Internal Medicine Medical Oncology
DX: C79.51 Secondary malignant neoplasm of bone (principal); C61 Malignant neoplasm of prostate; R10.9 Unspecified abdominal pain
CPT/HCPCS: 77080

== ENCOUNTER → 2022-04-30 | Outpatient (CLI) | payer OTHER, SELFPAY ==
--- NOTE | 2022-04-30 09:14 | US_ITS ---
INDICATION: HIGH FERRITIN-R/O LIVER DISEASE EXAMINATION: US Abdomen Limited (quadrant) TECHNIQUE: Fitzgerald-scale and color Doppler imaging was performed of the right upper abdominal quadrant. COMPARISON: None. Findings: The liver is slightly heterogenous with areas of increased and decreased echogenicity, however is normal in echotexture. There is no evidence of contour nodularity. No focal hepatic mass is identified. The main portal vein is normal in size and patent demonstrating hepatopetal flow. The gallbladder is unremarkable without evidence of stones, wall thickening or pericholecystic fluid. Sonographic Mckeon''s tenderness is not appreciated. There is no evidence of intrahepatic biliary ductal dilatation. The CBD is nondilated measuring 3 mm at the level of the roshan hepatis. The visualized portions of the pancreas are unremarkable without evidence of focal or diffuse enlargement. Specifically, the tail is obscured by overlying bowel gas. Right kidney measures 12 cm in length. It is normal in echogenicity. No focal renal lesion is identified. There is no evidence of hydronephrosis. US/Abdomen Limited IMPRESSION: Slightly heterogeneous liver without evidence of contour nodularity. Findings are nonspecific and may be consistent with sequelae of viral hepatitis, fatty infiltration or other forms of diffuse liver disease. Recommend correlation with viral serologies as indicated. No evidence of focal hepatic mass. Electronically Signed: Kirill Randall MD at 17:21 EST ,
--- NOTE | 2022-04-30 09:14 | US_ITS ---
STUDY: ABDOMINAL ULTRASOUND - ELASTOGRAPHY REASON FOR VISIT: Male, 56 years old. Abnormal liver enzymes. TECHNIQUE: Liver stiffness measurements were obtained on a [employer] RS 85 ultrasound machine using a CA 1-7 probe following the SRU guidelines. 3 measurements were obtained using a 2-D-SWE method. The IQR/M was 16% suggesting a quality data set. TECHNICAL QUALITY: Adequate. COMPARISON: Comparison is made with prior study done earlier today. FINDINGS: Liver: Heterogeneous echotexture of the liver suggestive of fatty infiltration. Median liver stiffness measured 3.1 kPa. US/Elastography Parenchyma/Organ IMPRESSION: Liver stiffness measures 3.1 kPa compatible with FO (Normal) Metavir score. Electronically Signed: Dariusz Stafford MD at 8:19 EST ,
== END | disposition home or self-care (01) ==
LOC: US 09:11
PROVIDERS: PCP Registered Nurse; Referring Provider Internal Medicine Medical Oncology; Visit Provider Internal Medicine Medical Oncology
DX: R74.8 Abnormal levels of other serum enzymes (principal); R79.89 Other specified abnormal findings of blood chemistry; K76.9 Liver disease, unspecified
CPT/HCPCS: 76705; 76981

== ENCOUNTER → 2024-10-19 | Outpatient (CLI) | payer MEDICARE, SELFPAY ==
--- NOTE | 2024-10-19 09:38 | NM_ITS ---
PROCEDURE: BONE SCAN WHOLE BODY 10/19/2024 REASON FOR EXAM: PROSTATE CA/BONE METS TECHNIQUE: Delayed imaging whole-body bone scan performed after radiopharmaceutical administration 27.5 RADIOPHARMACEUTICAL: mCi Technetium-99m MDP IV COMPARISON: Whole-body bone scan 02/26/2022 and PET-CT 10/13/2024.. FINDINGS: Compared with the prior bone scan of 02/26/2022, stable uptake in the ribs is noted, nonspecific in nature. Although not demonstrating increased uptake on the 10/13/2024 clarify PET-CT, persistent areas increased uptake are seen throughout the spine and bilateral ribs compared with the bone scan 02/26/2022, apparently worse in multiple areas of the spine compared with that prior examination. Increased uptake of the distal portions of the right femur are clearly noted, with possible expansile nature; recommend right femur plain film correlation if not already obtained. Prominent degenerative changes of the ankle joints, and particularly the bilateral knees, as well. Bilateral acromioclavicular joint degenerative changes, [id number]. Bilateral sternoclavicular joint degenerative changes. NM/Bone Scan Whole Body IMPRESSION: 1. Worsening uptake in the distal right femur, concerning for metastatic diseas e. Consider plain film correlation of the right femur, if not already obtained. 2. Persistent uptake of the bilateral ribs and throughout the spine, with some interval worsening of the spine noted, also concerning for metastatic disease. Reading Location: [place] [id number]
== END | disposition home or self-care (01) ==
LOC: NM 09:35
PROVIDERS: PCP Registered Nurse; Referring Provider Internal Medicine Medical Oncology; Visit Provider Internal Medicine Medical Oncology
DX: C61 Malignant neoplasm of prostate (principal); C79.51 Secondary malignant neoplasm of bone
CPT/HCPCS: 78306; A9541

== ENCOUNTER → 2024-11-09 | Outpatient (CLI) | payer MEDICARE, SELFPAY ==
--- NOTE | 2024-11-09 08:02 | MRI_ITS ---
PROCEDURE: LOWER EXT NO JOINT W/WO CONT 11/09/2024 REASON FOR EXAM: METS TO RIGHT FEMUR TECHNIQUE: T1, T2, postcontrast T1 fat-sat, LOWER EXT NO JOINT W/WO CONT CONTRAST: 20 cc Clariscan COMPARISON: October 19, 2024 bone scan FINDINGS: There is metallic artifact from a long stem prosthesis at the knee which obscures anatomic detail. There is asymmetric cortical thickening at the posterior and medial aspect of the hardware, midshaft of the femur, measuring approximately 5.8 cm in craniocaudal dimension, 1.2 cm in AP dimension, and 2.8 cm in transverse dimension, axial image 47/79, sagittal image 19/30. There are no significant postcontrast enhancing components, which suggests chronic bony hypertrophy related to hardware rather than metastatic disease. There is no soft tissue mass or adenopathy. There is no visible effusion of the knee or hip. Neurovascular structures are unremarkable. There is no visible muscular tear. MRI/Lower Ext No Joint W/WO Cont IMPRESSION: There is metallic artifact from a long stem prosthesis at the knee which obscur es anatomic detail. There is asymmetric cortical thickening at the posterior and medial aspect of t he hardware, midshaft of the femur, measuring approximately 5.8 cm in craniocaudal dimension, 1.2 cm in AP dimension, and 2.8 cm in transverse dimension, axial image 47/79, sagittal image 19/30. There are no significant postcontrast enhancing componen ts, which suggests chronic bony hypertrophy related to hardware rather than metastatic disease. Plain film correlation is recommended. Reading Location: [facility]
== END | disposition home or self-care (01) ==
PROVIDERS: PCP Registered Nurse; Referring Provider Internal Medicine Medical Oncology; Visit Provider Internal Medicine Medical Oncology
DX: C61 Malignant neoplasm of prostate (principal); C79.51 Secondary malignant neoplasm of bone
CPT/HCPCS: 73720; A9575

== ENCOUNTER 2025-01-15 13:02 | Day surgery (SDC) | payer MEDICARE, SELFPAY ==
[2025-01-15] VITALS (10 sets, daily range): BP systolic 112–124; BP diastolic 65–87; PULSE 72–79; RESP 16–18; TEMP 36.2–36.5; O2SAT 95–100; BMI 31.8
[2025-01-15] MEDS: Lactated Ringers 1,000 ML 15 ML IV (13:32)
--- NOTE | 2025-01-15 13:45 | PRE.ANES_ITS ---
ASA Classification* ASA Classification ASA Classification: 3 Assessment & Plan Anesthesia* Anesthesia Assessment Anesthesia Assessment: Discussed sedation and/or anesthesia options, risks, benefits, and alternatives with patient/parents/legal guardian/POA. Questions invited. The patient/parents/legal guardian/POA seems to understand and agrees to proceed with anesthesia plan. Reviewed the physical assessment, medical history, allergy history and patient home medications list prior to surgery/procedure/anesthetic and documented any changes. Performed airway and anesthesia risk assessments. Anesthesia Type Anesthesia Type: General and MAC History Source History Obtained from:: Patient and Chart Anesthesia Focused Assessment* Temperature: 97.7 F Pulse Rate: 73 Blood Pressure: 124/73 Respiratory Rate: 16 Pulse Ox: 96 Oxygen Delivery Method: Room Air Airway Assessment Mouth opens: >3 cm Mallampati Score: II Teeth Condition: Dentures Neck Range of motion (ROM): Full ROM Labs Anesthesia Preop lab: CBC WBC, (4.4-11.0) 4.7 K/mm3 09/28/24, 07:55 RBC, (4.6-6.2) 4.39 M/mm3 L 09/28/24, 07:55 Hgb, (13.0-16.5) 10.7 g/dL L 09/28/24, 07:55 Hct, (40-54) 34.1 % L 09/28/24, 07:55 Plt Count, (150-450) 291 K/mm3 09/28/24, 07:55 CHEMISTRY Potassium, (3.3-5.1) 3.8 mmol/L 09/28/24, 07:55 Sodium, (133-145) 140 mmol/L 09/28/24, 07:55 Magnesium, (1.6-2.6) 2.3 mg/dL 10/07/23, 12:45 Phosphorus, (2.5-4.9) 2.6 mg/dL 10/07/23, 12:45 BUN, (4-19) 18 mg/dL 09/28/24, 07:55 Creatinine, (0.70-1.20) 1.32 mg/dL H 09/28/24, 07:55 Glucose, (70-99) 108 mg/dL H 09/28/24, 07:55 POC Glucose, (74-106) 496 mg/dL H* 01/01/22, 14:39 COAG Pre-Assessment Diagnosis/Proposed Procedure Planned Operative Procedure(s): Fiducial Markers & Space Oar Gel Anesthesia History 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 When Was Last Pacemaker Check QUESTION #4 FULL TEXT: You/Your Family Experience fever (hyperthermia) with Anesthesia Last Oral Intake Last Oral intake: Last Oral Intake NPO since 12:30 01/15/25 13:26 Meds taken in AM with sips of water? Meds patient instructed to take am of surgery PONV PONV - squaring shear operator: PONV - squaring shear operator Female No 01/04/25 11:13 HX of Motion Sickness No 01/04/25 11:13 HX of N/V After Surgery No 01/04/25 11:13 Non-Smoker Yes 01/04/25 11:13 Duration of Surgery greater No 01/04/25 11:13 than 60 minutes Number of Risk Factors 1 01/04/25 11:13 PONV Score Low Risk 01/04/25 11:13 Height & Weight Height & Weight: Anesthesia: Height & Weight Height 5 ft 10 in 01/15/25 13:26 Weight: 100.5 kg 01/15/25 13:26 Body Mass Index (BMI) 31.8 01/15/25 13:26 Respiratory Assessment Respiratory Assessment - squaring shear operator: Respiratory Tract Infection Hx - squaring shear operator Hx Respiratory Tract Infection No 01/04/25 11:13 STOP Sleep Apnea STOP Sleep Apnea - squaring shear operator: STOP Sleep Apnea - squaring shear operator Hx Hypertension Yes 01/04/25 11:13 Hx Sleep Apnea No 01/04/25 11:13 CPAP No 12/28/24 10:59 BIPAP Do you snore loudly (louder No 01/04/25 11:13 than talking or can be heard Do you often feel tired/ No 01/04/25 11:13 fatigued/ sleepy during daytime? Has anyone observed you stop No 01/04/25 11:13 breathing during sleep? STOP Results Negative 01/04/25 11:13 QUESTION #5 FULL TEXT : Do you snore loudly (louder than talking or can be heard through closed doors)? 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 Specify any problems Hx of Preganancy in last 3 N/A 01/04/25 11:13 Months Nurse Filling Out Transfusion VLEHMAN 01/04/25 11:13 & Questions: Date: 01/04/25 01/04/25 11:13 Time: 11:19 01/04/25 11:13 Patient unable to answer at this time (ie. confused, unrespo /Reproduction History /Reproductive History - squaring shear operator: /Reproductive Hx- squaring shear operator Hx Now No 01/04/25 11:13 Gestational Age (in weeks): EDC: Hx Hx Para Hx Section SAB No 01/04/25 11:13 Active Medications Active Medications: Current Medications Generic Name Dose Route Start Last Admin Trade Name Freq PRN Reason Stop Dose Admin Cefazolin Sodium 2 gm/ Sodium 110 mls @ 200 mls/hr 01/15/25 15:30 Chloride IV 01/15/25 16:02 INTRAOP ONE Lactated Ringer's 1,000 mls @ 15 mls/hr 01/15/25 13:15 01/15/25 13:32 IV 15 mls/hr .Q48H ANALIA Administration PFSH Medical History Prostate disease High cholesterol Gastric reflux Non-smoker Diabetes mellitus Anemia Stomatitis Acid reflux Wears dentures Wears glasses Cancer Back pain On prednisone therapy Erectile dysfunction Hypertension Bone metastasis Prostate cancer Male erectile dysfunction, unspecified Essential (primary) hypertension Elevated prostate specific antigen [PSA] Home Medications ?Medication ?Instructions ?Recorded ?Last Taken ?Type lisinopril 20 1 tab PO DAILY 08/24/20 Unkn own History mg-hydrochlorothiazide 12.5 mg tablet cholecalciferol (vitamin D3) 50 50 mcg PO DAILY Unknown History mcg (2,000 unit) tablet ferrous sulfate 325 mg (65 mg 325 mg PO DAILY 06/26/21 Unknown History iron) tablet fish oil 400 mg-flaxseed 400 2 cap PO DAILY 12/04/21 0 01/04/25 History mg-prim,blk port crane operator,borag oils 200 mg capsule (Fish, Flax and Borage Oil ([place])) lisinopril 20 mg tablet 20 mg PO DAILY 12/04/21 Unkn own History omeprazole 20 mg capsule,delayed See Rx Instructions . Route 01/08/22 Unknown Rx release .COMPLEX #30 caps abiraterone 500 mg tablet See Rx Instructions .Route 0 10/29/22 Unknown Rx .COMPLEX #60 tabs calcium carbonate (Oyster Shell 500 mg PO BID #60 TABL ETS 09/07/24 Unknown Rx Calcium 500) sildenafil 100 mg tablet (Viagra) 100 mg PO QDAY PRN s exual activity 10/05/24 Unknown Rx #20 tabs dulaglutide 1.5 mg/0.5 mL 1.5 mg subcut FAUST 01/04/25 History subcutaneous pen injector (Trulicity) fenofibrate nanocrystallized 145 145 mg PO DAILY 01/04 Unknown History mg tablet latanoprost 0.005 % eye drops 1 drp ophthalmic (eye) D AILY 01/04/25 Unknown History Allergy/AdvReac Type Severity Reaction Status Date / Time No Known Allergies Allergy Verified 01/15/25 13:25 Surgical History History of removal of Port-a-Cath Social History household members: spouse housing: house Smoking Status: Never smoker Electronic Cigarette Use: not used second hand exposure: No alcohol intake: never substance use type: does not use caffeine: No seatbelt use: always do you feel safe at home: Yes Review of Systems (Anesthesia) ROS Narrative System reviewed and no additional complaints, except as documented.
--- NOTE | 2025-01-15 14:36 | OP.PCM_ITS ---
Operative Report (Standard) Operative Information Date of Procedure: 01/15/25 Pre-Operative Diagnosis: Prostate cancer RN Documented Start/Stop Times: Operation Date: 01/15/25 15:30 Case Time Into Pre-Op 01/15/25 13:15
--- NOTE | 2025-01-15 14:36 | PCM.OPRPT ---
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 Type of Anesthesia: General RN Documented Start/Stop Times: Operation Date: 01/15/25 15:30 Case Time Into Pre-Op 01/15/25 13:15 Out of Pre-Op 01/15/25 16:06 Procedure Start Time: 16:24 Procedure Stop Time: 16:28 Select all DRAINS/GRAFTS/IMPLANTS that apply: None Estimated Blood Loss: 0 Specimen collected: No Description of surgery: In the preoperative area I reviewed with the patient how the procedure is done we talked about the risk of the procedure including the risk of infection, bleeding, migration of the spacer gel, the patient is planning to have radiation to the prostate he understands that the spacer gel has demonstrated benefit in reducing the risk of toxicity from the ration radiation to the rectum but there is no guarantees that this spacer gel will prevent any serious complications or toxicity to the rectum or bowels. After reviewing this with the patient and his family organ to proceed with placement of a spacer gel matrix. Patient was taken back to the operating room after smooth induction of anesthesia he was placed supine on the table. The genitals and perineum were prepped and draped in usual sterile fashion. I then introduced a biplanar ultrasound probe into the rectum and performed ultrasonography and identified the Denonvilliers' fascia the prostate mid base and apex and seminal vesicles. The spacer gel mix was then prepared on the back table per manufactures instruction. Under ultrasound guidance in the midline perineum a bevel needle down we advanced through the perineum below the prostate into the space of Denonvilliers' fascia. This space which could be identified by ultrasound with a bright white layer between the prostate and the rectum. I then injected a puff of normal saline to identify the space further. After I confirmed that the needle was in the correct space in the mid prostate and the space of Denonvilliers' fascia between the rectum and the prostate. Then over the course of 15 seconds the gel matrix was injected slowly there was nice separation between the prostate and the rectum at the gel matrix was injected. The position of the gel matrix was confirmed by ultrasound. Then the injection needle was removed intact. Patient's perineum was cleaned patient was taken out of stirru. The penis and testicles were prepped and draped in usual sterile fashion, ultrasound probe was placed into the rectum and biplanar ultrasound was performed on the prostate. Identified the base mid and apex of the prostate identified the transition zone prostate. Then using a needle the first hand pattern marker was placed into the right base of the prostate, the second hand pattern marker was placed in the left base of the prostate, and the third core marker was placed in the right apex of the prostate after all 3 markers were placed the placement of the markers were confirmed by ultrasonography. Surgical Findings: markers placed and spacer gel Complications Complications: No Admit VTE Documentation VTE Present on Admission: No VTE Mechan Device Prophylaxis: SCD's VTE Pharm Prophylaxis ordered?: No
--- NOTE | 2025-01-15 14:36 | PCM.HP.STD ---
HPI - General General Date of Service: 01/15/25 Chief Complaint: Prostate cancer HPI Narrative NADER THAPA, is a 59 M who presents for treatment of prostate cancer he plans to have radiation therapy organ to place gold markers and SpaceOAR gel in the prostate in preparation for radiation therapy the patient understands the nature of the procedure was involved with it and all his questions were addressed he signed the consent form COUNT INCLUDES THE [facility] Medical History Prostate disease High cholesterol Gastric reflux Non-smoker Diabetes mellitus Anemia Stomatitis Acid reflux Wears dentures Wears glasses Cancer Back pain On prednisone therapy Erectile dysfunction Hypertension Bone metastasis Prostate cancer Male erectile dysfunction, unspecified Essential (primary) hypertension Elevated prostate specific antigen [PSA] Home Medications ?Medication ?Instructions ?Recorded ?Last Taken ?Type lisinopril 20 1 tab PO DAILY 08/24/20 Unknown History mg-hydrochlorothiazide 12.5 mg tablet cholecalciferol (vitamin D3) 50 50 mcg PO DAILY 08/30/20 Unknown History mcg (2,000 unit) tablet ferrous sulfate 325 mg (65 mg 325 mg PO DAILY 06/26/21 Unknown History iron) tablet fish oil 400 mg-flaxseed 400 2 cap PO DAILY 12/04/21 01/04/25 History mg-prim,blk clinical director,borag oils 200 mg capsule (Fish, Flax and Borage Oil ([place])) lisinopril 20 mg tablet 20 mg PO DAILY 12/04/21 Unknown History omeprazole 20 mg capsule,delayed See Rx Instructions .Route 01/08/22 Unknown Rx release .COMPLEX #30 caps abiraterone 500 mg tablet See Rx Instructions .Route 10/29/22 Unknown Rx .COMPLEX #60 tabs calcium carbonate (Oyster Shell 500 mg PO BID #60 TABLETS 09/07/24 Unknown Rx Calcium 500) sildenafil 100 mg tablet (Viagra) 100 mg PO QDAY PRN sexual activity 10/05/24 Unknown Rx #20 tabs dulaglutide 1.5 mg/0.5 mL 1.5 mg subcut FAUST 01/04/25 01/03/25 History subcutaneous pen injector (Trulicity) fenofibrate nanocrystallized 145 145 mg PO DAILY 01/04/25 Unknown History mg tablet latanoprost 0.005 % eye drops 1 drp ophthalmic (eye) DAILY 01/04/25 Unknown History Allergy/AdvReac Type Severity Reaction Status Date / Time No Known Allergies Allergy Verified 01/15/25 13:25 Surgical History History of removal of Port-a-Cath Social History household members: spouse housing: house Smoking Status: Never smoker Electronic Cigarette Use: not used second hand exposure: No alcohol intake: never substance use type: does not use caffeine: No seatbelt use: always do you feel safe at home: Yes Vital Signs Vital Signs Vital Signs: 01/15/25 13:26 01/15/25 13:26 01/15/25 13:47 Temperature 97.7 F L 97.7 F L Temperature Source Temporal Pulse Rate 73 73 Respiratory Rate 16 16 Respiratory Pattern Normal Blood Pressure 124/73 H 124/73 H Blood Pressure Mean 90 Blood Pressure Source Monitor Blood Pressure Position Semi-Fowlers Blood Pressure Location Left Arm Pulse Ox 96 96 Oxygen Delivery Method Room Air Room Air Weight Weight: 100.5 kg Body Mass Index (BMI) 31.8 Results Lab / Micro Data Labs: Laboratory Results - last 24 hr 01/15/25 13:30: POC Glucose 93
[2025-01-15] MEDS: Cefazolin 1 GM/5 ML Vial 2 GM IV (16:13)
[2025-01-15] MEDS: Lidocaine 1% (5 ml sdv) 5 ML Vial IV (16:14)
[2025-01-15] MEDS: fentaNYL 100 MCG/2 ML Ampul IV (16:25)
--- NOTE | 2025-01-15 16:41 | PCM.POST.ANE ---
Anesthesia: Postop Eval I Current Vital Signs Temperature: 97.5 F Pulse Rate: 74 Blood Pressure: 115/87 Respiratory Rate: 18 Pulse Ox: 96 Oxygen Delivery Method: Room Air Assessment Airway patent: Yes Spontaneous unlabored respirations: Yes Mental status: Asleep nausea: No Vomiting: No Anesthesia Complication: No Fluid Hydration Crystalloid volume administer (ml): 600 Total IV fluid infused: 600 Progress Note Anesthesia document: Postop Eval 1 completed: Yes
--- NOTE | 2025-01-15 16:56 | POSTOPAN2_ITS ---
Anesthesia Postop Eval I Sum Postop Eval Completion status Anesthesia document: Postop Eval 1 completed: Yes Anesthesia Postop Eval I Summary Anesthesia Postop Eval I Summary: Anesthesia Postop Eval I: Assessment Summary Airway patent Yes 01/15/25 16:42 [email or web address] Spontaneous unlabored Yes 01/15/25 16:42 [email or web address] respirations Mental status Asleep 01/15/25 16:42 [email or web address] nausea No 01/15/25 16:42 [email or web address] Vomiting No 01/15/25 16:42 [email or web address] Anesthesia Postop Eval I: Fluid Summary Crystalloid volume administer 600 01/15/25 16:42 [email or web address] (ml) Colloids volume administered ( ml) Blood Product volume administered (ml) Total IV fluid infused 600 01/15/25 16:42 [email or web address] Anesthesia Postop Eval I: Summary Notes Anesthesia Complication No 01/15/25 16:42 [email or web address] Anesthesia Complication Comment: Post-operative progress note Anesthesia: Postop Eval II Evaluation Mental status: Awake and Calm Pain Level: 1 nausea: No Vomiting: No Complications Anesthesia Complication: No
--- NOTE | 2025-01-15 16:56 | PCM.POSTANE2 ---
Anesthesia Postop Eval I Sum Postop Eval Completion status Anesthesia document: Postop Eval 1 completed: Yes Anesthesia Postop Eval I Summary Anesthesia Postop Eval I Summary: Anesthesia Postop Eval I: Assessment Summary Airway patent Yes 01/15/25 16:42 DIGITAL [email or web address] Spontaneous unlabored Yes 01/15/25 16:42 DIGITAL [email or web address] [email or web address] respirations Mental status Asleep 01/15/25 16:42 DIGITAL [email or web address] nausea No 01/15/25 16:42 DIGITAL MARKETING [email or web address] Vomiting No 01/15/25 16:42 DIGITAL [email or web address] Anesthesia Postop Eval I: Fluid Summary Crystalloid volume administer 600 01/15/25 16:42 DIGITAL [email or web address] (ml) Colloids volume administered ( ml) Blood Product volume administered (ml) Total IV fluid infused 600 01/15/25 16:42 DIGITAL MARKETING [email or web address] Anesthesia Postop Eval I: Summary Notes Anesthesia Complication No 01/15/25 16:42 DIGITAL [email or web address] [email or web address] Anesthesia Complication Comment: Post-operative progress note Anesthesia: Postop Eval II Evaluation Mental status: Awake and Calm Pain Level: 1 nausea: No Vomiting: No Complications Anesthesia Complication: No
== END 2025-01-15 18:00 | disposition home or self-care (01) ==
LOC: SDC 13:02 → AC 13:05
PROVIDERS: PCP Registered Nurse; Referring Provider Urology; Visit Provider Urology
PROC: (CPT 55874; principal; 2025-01-15 15:15)
DX: C61 Malignant neoplasm of prostate (principal); C79.51 Secondary malignant neoplasm of bone; E11.9 Type 2 diabetes mellitus without complications; I10 Essential (primary) hypertension; Z79.85 Long-term (current) use of injectable non-insulin antidiabetic drugs; Z79.899 Other long term (current) drug therapy
CPT/HCPCS: 55876; 55874; 00902; 82962; A4648; C1889; J2405

== ENCOUNTER → 2025-01-25 | Outpatient (CLI) | payer MEDICARE, SELFPAY ==
--- NOTE | 2025-01-25 07:53 | MRI_ITS ---
PROCEDURE: PELVIS W/WO CONTRAST, 01/25/2025 REASON FOR EXAM: EVAL FOR PROSTATE DISEASE. PSA reportedly 6.47 on 12/28/2024. TECHNIQUE: Multisequence multiplanar MRI pelvis was performed with and without IV contrast. IV Contrast: 20 mL Clariscan COMPARISON: 12/22/2024 FINDINGS: Variable overall mild motion limitation. The effect is magnified by the small size of the gland. Tiny amount of T1 bright presumed post biopsy blood products within the LEFT posterior gland. Prostate size: 3.9 x 3.0 x 4.0 cm, estimated volume 24.3 mL. Per the above provided PSA, PSA density is 0.266 ng/mL. Interval placement of spacer material the anterior rectum from the posterior prostate with good separation of the structures, closest margin at the level of the apex roughly 5 mm. Suspect grade 2 rectal wall infiltration. Suspect fiducial markers are present. Transition zone: No clear high-risk lesion identified. PI-RADS 2 findings. Peripheral Zone: No clear high-risk lesion identified. Diffuse patchy mild/moderate T2 hypointensity without restricted diffusion significantly above background, favorable for a combination of presumed post biopsy blood products and fairly considerable sequela of prostatitis changes of likely prostatitis (PI-RADS 2). Neurovascular bundles: Unremarkable. Seminal vesicles: T1 bright likely hemorrhagic/proteinaceous fluid signal bilaterally. Bladder: Unremarkable. Lymph nodes: Borderline external iliac nodes up to 8 mm short axis bilaterally, not previously PSMA avid. Bones: No destructive or frankly suspicious bony lesions identified on nondedicated evaluation. Suspect failure of fat saturation in the RIGHT femur perhaps related to knee arthroplasty hardware below the field of view. 1.7 cm hypointense nonenhancing likely bone island in the LEFT superior acetabulum. Lumbar spondylosis. Additional areas of sclerosis involving sacrum and RIGHT iliac bone better depicted on recent PET/CT. Other: None. MRI/Pelvis W/WO Contrast IMPRESSION: 1. Interval placement of spacing material between the anterior rectum and poste rior prostate with good separation of these structures, closest margin at the level of the apex roughly 5 mm. Suspect grad e 2 rectal wall infiltration. 2. Prominent background changes of likely prostatitis and small amount of presu med post procedural blood products without clear high-risk lesion identified (PI-RADS 2). 3. Borderline bilateral external iliac nodes were not previously PSMA avid, non specific and potentially reactive. 4. Additional description as above. Reading Location: [id number]
== END | disposition home or self-care (01) ==
PROVIDERS: PCP Registered Nurse; Referring Provider Student in an Organized Health Care Education/Training Program; Visit Provider Student in an Organized Health Care Education/Training Program
DX: C61 Malignant neoplasm of prostate (principal)
CPT/HCPCS: 72197; A9575; A4216

== ENCOUNTER → 2025-03-26 | Outpatient (CLI) | payer MEDICARE, SELFPAY ==
[2025-03-26 15:23] LABS: PSA,Total- Diagnostic 7.25 ng/mL (0.00-4.00)
== END | disposition home or self-care (01) ==
LOC: MTLAB 13:22
PROVIDERS: PCP Registered Nurse; Referring Provider Internal Medicine Medical Oncology; Visit Provider Internal Medicine Medical Oncology
DX: C61 Malignant neoplasm of prostate (principal)
CPT/HCPCS: 36415; 84153